=== PATIENT | female | born 1980 | race Caucasian/White ===

== ENCOUNTER 2016-06-01 09:04 | Emergency (ER) | payer MEDICAID ==
[~2016-06-01] VITALS: Ht 154.9 cm; Wt 87.1 kg
[2016-06-01 09:15] VITALS: Ht 154.9 cm; Wt 87.1 kg
[2016-06-01] MEDS ORDERED: ALBUTEROL 0.5% (NEB) 2.5 MG/0.5 ML AMP NEB STA (10:01)
--- NOTE | 2016-06-01 10:40 | RADRPT ---
PROCEDURE: XR Chest. CLINICAL INDICATION: Coughing, back pain, asthma exacerbation TECHNIQUE: AP view of the chest was obtained. COMPARISON: 10/21/2013 FINDINGS: The cardiomediastinal silhouette is within normal limits. The lungs are clear. No pleural effusion or pneumothorax is seen. Visualized osseous structures are intact. IMPRESSION: No evidence of acute cardiopulmonary disease. RPTAT: EE .Loc Castrejon MD, MD Date Time Electronically viewed and signed by .Loc Castrejon MD, on 06/01/2016 10:39 .O/
[2016-06-01] MEDS ORDERED: BENZ100C70 PO (11:17)
[2016-06-01] MEDS ORDERED: ALBU8.5H3 INH (11:17)
--- NOTE | 2016-06-01 11:36 | ERD ---
ER Documentation Chief Complaint Date/Time DATE: 06/01/16 TIME: 11:33 Chief Complaint Back pain X 2 weeks, cough X 4 days and intermittent fevers. dx Asthma HPI 36-year-old female with a past medical history of asthma presents to the ED complaining of a productive cough that started 4 days ago. Reports that she has been taking Advil Cold and Sinus and NyQuil without relief of her symptoms. States that she feels short of breath. Denies any wheezing. Denies any recent traveling or leg swelling. was also with patient at this time and stated that he is sick as well as his daughter with similar symptoms of cough. Patient denies any fever, chills, abdominal pain, nausea, vomiting, pleuritic chest pain, dyspnea on exertion, pleuritic chest pain. ROS All systems reviewed and are negative except as per history of present illness. Medications Home Meds Active Scripts Albuterol Sulfate* (Proair HFA*) 8.5 Gm Hfa.aer.ad, 2 PUFF INH Q4, #1 INHALER Prov:TRAV JAY PA-C 06/01/16 Benzonatate* (Tessalon Perle*) 100 Mg Capsule, 100 MG PO Q8H Y for COUGH, #20 CAP Prov:TRAV JAY PA-C 06/01/16 Allergies Allergies: Coded Allergies: No Known Drug Allergies (Verified Allergy, Unknown, 10/21/13) PMhx/Soc History of Surgery: Yes (BRAIN SURGERY FOR TUMOR REMOVAL) Anesthesia Reaction: No Hx Neurological Disorder: No Hx Respiratory Disorders: Yes (ASTHMA) Hx Cardiac Disorders: No Hx Psychiatric Problems: No Hx Miscellaneous Medical Probl: No Hx Alcohol Use: No Hx Substance Use: No Hx Tobacco Use: No Smoking Status: Never smoker Physical Exam Vitals Vital Signs Date Time Temp Pulse Resp B/P Pulse Ox O2 Delivery O2 Flow Rate FiO2 06/01/16 09:15 98.4 89 18 141/69 100 Physical Exam Const: [id number], well-nourished. In no acute distress. Head: Atraumatic, normocephalic Eyes: Normal Conjunctiva without injection. No purulent discharge. PERRL. EOMI ENT: Normal external ear. Ear canal without erythema. Tympanic membrane pearly barrera without effusion or bulging. Nasal canal clear with normal turbinates. Moist oropharynx without tonsillar exudates. Non-erythematous pharynx. Uvula midline. No drooling. No trismus. Neck: Full range of motion. No meningismus. No cervical lymphadenopathy. Resp: Clear to auscultation bilaterally. No wheezing, rhonchi, rales, or crackles. No accessory muscle use. No retractions. Cardio: Regular rate and rhythm. No murmurs, rubs or gallops. Abd: Soft, non tender, non distended. Normal bowel sounds. No palpable masses. No rebound tenderness. No guarding. Skin: No petechiae or rashes Back: No midline tenderness. No CVA tenderness. Ext: No cyanosis, or edema. Neur: Awake and alert. Psych: Normal Mood and Affect Results 24 hrs Current Medications Medications (Trade) Dose Ordered Sig/Fe Route PRN Reason Start Time Stop Time Status Last Admin Dose Admin Albuterol (Proventil 0.5% (Neb)) 5 mg ONCE STAT NEB 06/01/16 10:01 06/01/16 10:05 DC 06/01/16 10:33 Procedures/MDM This is a 36-year-old female with a past medical history of asthma presents to the ED complaining of cough that started 4 days ago that exacerbated her asthma. Patient is afebrile and nontoxic-appearing. Patient has normal vital signs. PROCEDURE: XR Chest. CLINICAL INDICATION: Coughing, back pain, asthma exacerbation TECHNIQUE: AP view of the chest was obtained. COMPARISON: 10/21/2013 FINDINGS: The cardiomediastinal silhouette is within normal limits. The lungs are clear. No pleural effusion or pneumothorax is seen. Visualized osseous structures are intact. IMPRESSION: No evidence of acute cardiopulmonary disease. This patient presents to the ED with symptoms consistent with a viral acute upper respiratory infection that exacerbated her asthma. Patient is afebrile and has normal vital signs. Patient's physical exam include lungs which were clear to auscultation and a normal pulse oximetry. There is a low suspicion for pneumonia, pneumothorax, pulmonary embolism, epiglottitis, otitis media, otitis externa, viral/strep pharyngitis, sinusitis, peritonsillar abscess, mastoiditis , retropharyngeal abscess, meningitis, sepsis, acute abdomen or other emergent conditions. Fluids, rest, and symptomatic treatment are recommended for the management of patient's symptoms. Discharge medications: Tessalon Perles, Pro-air Patient was instructed to return to the ED for any new or worsening symptoms. They should otherwise follow up with the primary care provider within 1-2 days. The patient's questions were answered at the time of discharge. Patient understood and agreed with discharge management. Departure Diagnosis: Primary Impression: Cough Additional Impression: Shortness of breath Condition: Stable Patient Instructions: Asthma, Acute (Adult), Uri, Viral, No Abx (Adult) [facility] Usted se butler hecho un examen mdico de control que le indica que no est en donavon condicin que requiera tratamiento urgente en el Departamento de Emergencia. Un estudio ms profundo y el tratamiento de hernández condicin pueden esperar sin ningn riesgo hasta que usted sea atendida/o en el consultorio de hernández mdico o donavon cl colin. Es responsabilidad suya arreglar donavon rima para el seguimiento del jessica. MANEJO DE CONDICIONES NO URGENTES EN EL FUTURO 1) Si usted tiene un mdico de atencin primaria: Usted debera llamar a hernández mdico de atencin primaria antes de venir al departamento de emergencia. Despus de las horas de consultorio, hernández doctor o hernández asociado/a est disponible por telfono. El mdico o enfermero de orion en el servicio telefnico puede asesorarle por valery medio para atender el problema, o jessica contrario se puede programar donavon rima. 2) Si usted no tiene un mdico de atencin primaria: Llame al mdico o clnica de referencia que aparece abajo malka las horas de consultorio para hacer donavon rima para que le vean. CLINICAS: [facility] [phone] [address] [facility] 632 [phone] [address] [facility] 232 [phone] [address] [facility] [phone] [facility]. [facility] 439 [phone] [address] [facility]. [phone] [address] [facility]. [facility] () Ussylvia se butler hecho un examen mdico de control que le indica que no est en donavon condicin que requiera tratamiento urgente en el Departamento de Emergencia. Un estudio ms profundo y el tratamiento de hernández condicin pueden esperar sin ningn riesgo hasta que usted sea atendida/o en el consultorio de hernández mdico o donavon cl colin. Es responsabilidad suya arreglar donavon rima para el seguimiento del jessica. MANEJO DE CONDICIONES NO URGENTES EN EL FUTURO 1) Si usted tiene un mdico de atencin primaria: Usted debera llamar a hernández mdico de atencin primaria antes de venir al departamento de emergencia. Despus de las horas de consultorio, hernández doctor o hernández asociado/a est disponible por telfono. El mdico o enfermero de orion en el servicio telefnico puede asesorarle por valery medio para atender el problema, o jessica contrario se puede programar donavon rima. 2) Si usted no tiene un mdico de atencin primaria: Llame al mdico o condado institucions de referencia que aparece abajo malka las horas de consultorio para hacer donavon rima para que le vean. SI USTED NO PUEDE PAGAR PARA MORALES UN MEDICO puede ir a: [facility] [address] [place] [address] [facility] [address] [place] [address] [facility] [address] [place] [address] [facility] [address] [place] [address] [facility] Additional Instructions: Visite a hernández mdico maana para un EXAMEN.Regrese a estas instalaciones si no se mejora lizet esperbamos o lizet le dijimos. TRAV JAY PA-C Jun 01, 2016 11:36
== END 2016-06-01 11:37 | disposition home or self-care (01) ==
LOC: FTE 09:04
DX: R05 Cough (principal); R06.02 Shortness of breath; J45.909 Unspecified asthma, uncomplicated
CPT/HCPCS: 71010; 94664; Z7502; Z7610

== ENCOUNTER 2016-06-28 15:55 | Emergency (ER) | payer MEDICAID ==
[~2016-06-28] VITALS: Ht 162.6 cm; Wt 87.5 kg
[~2016-06-28 15:55] MED LIST: ALBU8.5H3 INH; BENZ100C70 PO
[2016-06-28 16:03] VITALS: Ht 162.6 cm; Wt 87.5 kg
[2016-06-28] MEDS ORDERED: ACETAMINOPHEN 500 MG TAB PO STA (17:41)
[2016-06-28] MEDS ORDERED: OSLT75C PO (18:01)
[2016-06-28] MEDS ORDERED: TYL500 PO (18:01)
[2016-06-28] MEDS ORDERED: D-ME473S18 PO (18:01)
[2016-06-28 18:12] VITALS: TEMP 99.1
--- NOTE | 2016-06-28 18:46 | ERD ---
ER Documentation Chief Complaint Date/Time DATE: 06/28/16 TIME: 18:42 Chief Complaint FLU LIKE SYMPTOMS SINCE FIDAY,FEVER,ST,COUGH, FROST HPI This is a 36-year-old female that presents to the ER with fever, sore throat, cough, headache, body pain since yesterday. Patient states that she has been taking Tylenol for the fever however fever keeps on coming back. Patient also feels fatigued. She denies any chest pain or shortness of breath. States that cough is dry and constant. Sore throat is severe worse when she swallows. Body pain is described as achy in nature. Patient did not get her flu shot this year. 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 Patient is complaining of left-sided facial pain which also started yesterday. She however denies any new numbness or tingling of the left side of the face. ROS 12 point review of systems was done, all negative except per HPI. Medications Home Meds Active Scripts Dextromethorphan Hb-Promethazine Hcl (Promethazine DM Syrup) 473 Ml Syrup, 10 ML PO Q6H Y for COUGH, #4 OZ Prov:MICHAEL BOWMAN 06/28/16 Oseltamivir Phosphate* (Tamiflu*) 75 Mg Capsule, 75 MG PO BID for 5 Days, CAP Prov:MICHAEL BOWMAN 06/28/16 Acetaminophen* (Tylenol*) 500 Mg Tab, 1000 MG PO Q8H Y for PAIN AND OR ELEVATED TEMP for 3 Days, TAB Prov:MICHAEL BOWMAN 06/28/16 Albuterol Sulfate* (Proair HFA*) 8.5 Gm Hfa.aer.ad, 2 PUFF INH Q4, #1 INHALER Prov:TRAV JAY PA-C 06/01/16 Benzonatate* (Tessalon Perle*) 100 Mg Capsule, 100 MG PO Q8H Y for COUGH, #20 CAP Prov:TRAV JAY PA-C 06/01/16 Allergies Allergies: Coded Allergies: No Known Drug Allergies (Verified Allergy, Unknown, 10/21/13) PMhx/Soc History of Surgery: Yes (BRAIN SURGERY FOR TUMOR REMOVAL) Anesthesia Reaction: No Hx Neurological Disorder: No Hx Respiratory Disorders: Yes (ASTHMA) Hx Cardiac Disorders: No Hx Psychiatric Problems: No Hx Miscellaneous Medical Probl: No Hx Alcohol Use: No Hx Substance Use: No Hx Tobacco Use: No Smoking Status: Never smoker Physical Exam Vitals Vital Signs Date Time Temp Pulse Resp B/P Pulse Ox O2 Delivery O2 Flow Rate FiO2 06/28/16 18:12 99.1 06/28/16 16:03 100.2 99 20 146/80 99 Physical Exam GENERAL: The patient is well-developed, well-nourished, in no acute distress. NECK: Cervical spine is non tender with no step off. Supple, no nuchal rigidity HEENT: Atraumatic. Pupils equal, round and reactive to light. Extraocular muscles are grossly intact. Conjunctivae pink, no discharge. Bilateral tympanic membranes are clear with no evidence of erythema, effusion or dulling of the light reflex. Tonsilar erythema with no exudates or uvular deviation. Clear rhinorrhea. RESPIRATORY: Clear to auscultation bilaterally. There are no rales, wheezes or rhonchi. HEART: Regular rate and rhythm. No murmurs, clicks, rubs or gallops. EXTREMITIES: No clubbing or cyanosis. Full range of motion. Grossly neurovascularly intact. NEUROLOGIC: Alert and oriented. Patient has left-sided facial paralysis, from previous tumor removal. SKIN: There is no rash. The skin is warm and dry. Results 24 hrs Current Medications Medications (Trade) Dose Ordered Sig/Fe Route PRN Reason Start Time Stop Time Status Last Admin Dose Admin Acetaminophen (Tylenol Tab) 1,000 mg ONCE STAT PO 06/28/16 17:41 06/28/16 17:43 DC 06/28/16 17:54 Procedures/MDM Differential diagnosis includes but is not limited to; Viral URI, allergic rhinitis, bronchitis, pertussis,pneumonia. Patient has influenza-like symptoms. She will be treated with Tamiflu, promethazine, Tylenol.. Clinical suspicion for pneumonia is low as patient appears well, is not hypoxic or in any respiratory distress. Additionally, patients physical examination is benign. Plan was discussed with patient they understand and agree. Patient needs to follow up with PCP in 1-2 days or return to ER sooner if symptoms worsen. Departure Diagnosis: Primary Impression: Influenza-like symptoms Condition: Stable Patient Instructions: Influenza (Adult) Additional Instructions: Call your primary care doctor TOMORROW for an appointment during the next 1-2 days.See the doctor sooner or return here if your condition worsens before your appointment time. MICHAEL BOWMAN Jun 28, 2016 18:46
== END 2016-06-28 18:12 | disposition home or self-care (01) ==
LOC: FTE 15:55
DX: R50.9 Fever, unspecified (principal); J02.9 Acute pharyngitis, unspecified; R05 Cough; R51 Headache; J45.909 Unspecified asthma, uncomplicated
CPT/HCPCS: Z7502; Z7610; 99284

== ENCOUNTER 2017-06-22 19:08 | Emergency (ER) | END 2017-06-22 20:38 | disposition home or self-care (01) ==

== ENCOUNTER 2017-09-05 15:38 | Emergency (ER) | END 2017-09-05 17:31 | disposition home or self-care (01) ==

== ENCOUNTER 2017-09-19 17:00 | Emergency (ER) | END 2017-09-19 20:00 | disposition home or self-care (01) ==

== ENCOUNTER 2018-05-28 19:11 | Emergency (ER) | payer SELFPAY ==
[~2018-05-28] VITALS: Ht 165.1 cm; Wt 81.6 kg
[~2018-05-28 19:11] MED LIST changes: +ACET325T33 PO; +ALBU18HF INHALATION; -ALBU8.5H3 INH; +ALBU8.5H8 INH; +BENZ-6 PO; -BENZ100C70 PO; +BENZ200C68 PO; +CEPH-443 PO; +D-ME473S18 PO; +ERYT1OIN6 LEFT EYE; +IBUP-1542 PO; +MED4DP PO; +NAPR-985 PO; +OSEL75CA23 PO; +PHEN177S43 MT; +RANI150T35 PO; +TYL500 PO
[2018-05-28 19:17] VITALS: BP 165/76; PULSE 88; RESP 18; Ht 165.1 cm; Wt 81.6 kg
== END 2018-05-29 00:39 | disposition left against medical advice (07) ==
LOC: FTE 19:11
DX: Z53.21 Procedure and treatment not carried out due to patient leaving prior to being seen by health care provider (principal)